=== PATIENT | female | born 1995 | race Caucasian/White ===

== ENCOUNTER 2016-11-05 11:23 | Emergency (ER) | payer OTHER ==
[~2016-11-05] VITALS: Ht 157.5 cm; Wt 76.9 kg
[2016-11-05] MEDS ORDERED: LEVO50TA5 PO (12:12)
[2016-11-05] MEDS ORDERED: ONDANSETRON 2MG/ML, 2ML IVPush ONE (12:30)
[2016-11-05] MEDS ORDERED: SODIUM CHLORIDE FLUSH 10ML SYR IVF ONE (12:30)
[2016-11-05] MEDS ORDERED: SODIUM CHLORIDE 0.9% 1,000ML IVBOLUS ONE (12:30)
[2016-11-05 13:30] LABS: ASPARTATE AMINO TRANSFERASE 16 U/L (15-37); BLOOD UREA NITROGEN 6 mg/dL (7-18)
[2016-11-05 14:22] VITALS: BP 109/66
== END 2016-11-05 14:26 | disposition home or self-care (01) ==
LOC: ED 13:52
DX: K85.00 Idiopathic acute pancreatitis without necrosis or infection (principal); E03.9 Hypothyroidism, unspecified; Z88.1 Allergy status to other antibiotic agents
CPT/HCPCS: 36415; 80053; 83690; 84703; 85025; 99284